=== PATIENT | male | born 1965 | race Caucasian/White ===

== ENCOUNTER 2017-07-03 05:59 | Emergency (ER) | payer SELFPAY ==
--- NOTE | 2017-07-03 06:05 | NUR ---
PATIENT CALLED TO BE TRIAGE LEFT BECAUSE HE HAS NO INSURANCE.PATIENT LEFT WITHOUT BEING SEEN BY DR. ARCHER. NO FURTHER CARE PROVIDED FOR PATIENT.
== END 2017-07-03 06:05 | disposition left against medical advice (07) ==
LOC: MED 05:59
DX: R06.02 Shortness of breath (principal); Z53.21 Procedure and treatment not carried out due to patient leaving prior to being seen by health care provider